=== PATIENT | female | born 1960 | race Two or more races ===

== ENCOUNTER 2018-09-30 05:02 | Inpatient (IN) | payer OTHER ==
[~2018-09-30] VITALS: Ht 157.5 cm; Wt 99.8 kg
[~2018-09-30 05:02] MED LIST: GABA250S2 PO; GLIP2.5T28 PO; MET50T PO; METF-370 PO; OMEP20CA74 OR; POTA10IN PO; TORS20TA20 PO
[2018-09-30] MEDS ORDERED: ASPirin 81 mg TAB PO ONE (05:30)
[2018-09-30] MEDS ORDERED: ONDANSETRON HCL 4 MG/2 ML VIAL IV ONE (06:00)
[2018-09-30] MEDS ORDERED: MORPHINE SULFATE 4 MG/ML SYR/VIAL IV ONE (06:00)
[2018-09-30 06:16] LABS: Basophils # (auto) 0 uL; Basophils % (auto) 0.3 % (0.0-2.0); Eosinophils # (auto) 0.2 uL; Eosinophils % (auto) 1.5 % (0.0-7.0); Hematocrit 43.2 % (36.0-46.0); Hemoglobin 14.8 g/dL (12.2-16.2); Lymphocytes # (auto) 2.7 uL; Lymphocytes % (auto) 25.6 % (10.0-50.0); Mean Corpuscular Hemoglobin 30.1 pg (28.0-32.0); Mean Corpuscular Hgb Conc. 34.3 g/dL (32.0-36.0); Mean Corpuscular Volume 87.8 fL (80.0-100.0); Monocytes # (auto) 0.7 uL; Monocytes % (auto) 6.3 % (0.0-12.0); Neutrophils # (auto) 6.9 uL; Neutrophils % (auto) 66.3 % (37.0-80.0); Platelet Count (auto) 185 10^3/uL (140-450); Red Blood Cells 4.92 10^6/uL (4.0-5.20); Red Cell Distribution Width 13.2 % (11.8-14.3); White Blood Cell 10.4 10^3/uL (4.4-10.8)
[2018-09-30 06:19] LABS: Urine Bacteria FEW /hpf (None Seen); Urine Blood TRACE /uL (Negative); Urine Specific Gravity 1.003 (1.001-1.035); Urine WBC 2 /hpf (0 - 5)
[2018-09-30 06:32] LABS: INR 0.87 (0.9-1.15); Partial Thromboplastin Time 27.8 sec (23.78-33.04); Prothrombin Time 9.4 sec (9.27-12.13)
[2018-09-30 06:39] LABS: Albumin 3.8 g/dL (3.4-5.0); Calcium 8.9 mg/dL (8.5-10.1); Potassium 3.6 mmol/L (3.5-5.1)
[2018-09-30 06:47] LABS: BUN/Creatinine Ratio 18.3; Bilirubin, Total 0.3 mg/dL (0.2-1.0); Magnesium 1.9 mg/dL (1.6-2.6); Total Protein 7.8 g/dL (6.4-8.2)
[2018-09-30] MEDS ORDERED: METOPROLOL TARTRATE 1MG/1ML-5ML VIAL IV ONE (07:00)
[2018-09-30] MEDS ORDERED: NITROGLYCERIN 50MG/250ML 250 ML IV ONE ×2 (07:00→07:03)
[2018-09-30] MEDS ORDERED: HEPARIN SODIUM (PORCINE) 5000 UNITS/ML 1ML VIAL IV ONE (07:00)
[2018-09-30] MEDS ORDERED: LIDOCAINE 2%HCL (LOCAL ANESTH.) INJ 20ML MDV ONE (07:36)
[2018-09-30] MEDS ORDERED: IODIXANOL 320MG/ML 100ML BTL IV ONE (07:36)
[2018-09-30] MEDS ORDERED: SODIUM CHL 0.9% 50 ML ONE (09:10)
[2018-09-30] MEDS ORDERED: fentaNYL CITRATE 100 MCG/2 ML VL ONE (09:10)
[2018-09-30] MEDS ORDERED: ANGIOMAX 250 MG VIAL IV ONE (09:10)
[2018-09-30] MEDS ORDERED: MIDAZOLAM HCL 1MG/1ML-2 ML VIAL ONE ×2 (09:10→09:29)
[2018-09-30] MEDS ORDERED: IOHEXOL 350 MG/ML 100ML IJ ONE (09:11)
[2018-09-30] MEDS ORDERED: ATROPINE SULFATE 1 MG/1 ML VIAL ONE (09:21)
[2018-09-30] MEDS ORDERED: TICAGRELOR 90 MG TAB ONE (09:47)
[2018-09-30] MEDS ORDERED: ASPirin 81 mg TAB ONE (09:47)
[2018-09-30] MEDS ORDERED: MORPHINE SULF INJ 2 MG/ML SYRINGE 1ML IV PRN (10:15)
[2018-09-30] MEDS ORDERED: ONDANSETRON HCL 4 MG/2 ML VIAL IV PRN (10:15)
[2018-09-30] MEDS ORDERED: NITROGLYCERIN 0.4 MG SL TAB SL PRN (10:15)
[2018-09-30] MEDS ORDERED: ALPRAZolam 0.5 MG TAB PO ONE (11:15)
--- NOTE | 2018-09-30 12:58 | NUR ---
Report received from clinical genetics laboratory chief. EDIN MENDIETA brought to bed 291a following [facility]. AAOX4, breathing even unlabored, S,1 S2, Abd soft nontender. Right groin catheterization site assessed for any bleeding, redness or swelling, dressing remain intact, no bleeding nor swelling noted. Pedal pulses on affected leg assessed for positive tissue perfusion. Patient instructed on need to notify staff immediately if any pain, burning or wetness to site, and any lower back pain. Patient educated on new cardiac medications. All questions and concerns addressed, patient verbalized understanding of all education and instruction. Family at bedside. Bed locked in the lowest position, call light within easy reach, will continue to monitor.
[2018-09-30 13:26] VITALS: BP 146/69
--- NOTE | 2018-09-30 14:23 | NUR ---
DR. SCALES AT BEDSIDE.
[2018-09-30] MEDS ORDERED: MORPHINE SULFATE 4 MG/ML SYR/VIAL IV PRN (14:30)
[2018-09-30] MEDS ORDERED: NICOTINE 14 MG/24HR TOPICAL PATCH TD ONE (16:15)
[2018-09-30 16:42] VITALS: BP 140/72
--- NOTE | 2018-09-30 19:16 | NUR ---
CARE ENDORSED TO AMRITA RN.
--- NOTE | 2018-09-30 19:45 | NUR ---
RECEIVED PATIENT FROM DAY SHIFT RN. PATIENT SITTING IN BED AND HAVING DINNER. NO S/S OF DISTRESS NOTED. DENIED PAIN FOR NOW. DRESSING ON RIGHT GROIN C/D/I. POC INSTRUCTED AND ENCOURAGED PATIENT TO CALL FOR SALARY AND WAGE ADMINISTRATOR IF NEEDED. BED IN LOWEST POSITION WITH SIDE RAILS UP X 2. CALL ESQUIVEL WITHIN REACH. ALARM ON. CONTINUE TO MONITOR FOR CHANGES Q1H AND PRN.
[2018-09-30 21:26] VITALS: BP 138/61
[2018-09-30] MEDS: TICAGRELOR 90 MG TAB PO SCH (21:34)
[2018-09-30] MEDS: ALPRAZolam 0.25 MG TAB PO SCH (21:34)
[2018-09-30] MEDS: CARVEDILOL 3.125 MG TAB PO SCH (21:35)
[2018-09-30] MEDS: HYDROcodone-ACET 5/325MG TAB PO PRN (21:36)
[2018-09-30] MEDS ORDERED: ATORVASTATIN 20 MG TAB PO SCH (22:00)
--- NOTE | 2018-10-01 05:51 | NUR ---
PATIENT RESTING IN BED. NO S/S OF DISTRESS NOTED. CONTINUE CARE.
[2018-10-01 06:07] VITALS: BP 134/87
[2018-10-01 06:34] LABS: Potassium 3.9 mmol/L (3.5-5.1)
[2018-10-01 06:36] LABS: Basophils # (auto) 0 uL; Basophils % (auto) 0.2 % (0.0-2.0); Eosinophils # (auto) 0.2 uL; Eosinophils % (auto) 1.7 % (0.0-7.0); Hematocrit 41.2 % (36.0-46.0); Hemoglobin 13.9 g/dL (12.2-16.2); Lymphocytes # (auto) 2.5 uL; Lymphocytes % (auto) 27.8 % (10.0-50.0); Mean Corpuscular Hemoglobin 29.8 pg (28.0-32.0); Mean Corpuscular Hgb Conc. 33.8 g/dL (32.0-36.0); Mean Corpuscular Volume 88.2 fL (80.0-100.0); Monocytes # (auto) 0.6 uL; Monocytes % (auto) 6.6 % (0.0-12.0); Neutrophils # (auto) 5.6 uL; Neutrophils % (auto) 63.7 % (37.0-80.0); Nucleated Red Blood Cells % 0.1 %; Platelet Count (auto) 185 10^3/uL (140-450); Red Blood Cells 4.67 10^6/uL (4.0-5.20); Red Cell Distribution Width 13.4 % (11.8-14.3); White Blood Cell 8.9 10^3/uL (4.4-10.8)
[2018-10-01 06:37] LABS: Calcium 8.2 mg/dL (8.5-10.1)
[2018-10-01 06:42] LABS: BUN/Creatinine Ratio 15.2; Bilirubin, Total 0.5 mg/dL (0.2-1.0); Total Protein 6.7 g/dL (6.4-8.2)
--- NOTE | 2018-10-01 06:51 | NUR ---
RECEIVED CRITICAL LAB RESULT, TROP 3.92. PATIENT S/P LHC, WILL REPORT TO DAY SHIFT RN TO DAY SHIFT MD. CONTINUE TO MONITOR.
--- NOTE | 2018-10-01 07:30 | NUR ---
Opening Shift Note Assumed care of patient, awake and alert. No S/S of distress/SOB or pain. Instructed on POC and to call for assist PRN, will continue to monitor for changes Q1hr and PRN.
[2018-10-01 08:00] VITALS: BP 139/71
[2018-10-01 08:41] VITALS: BP 139/71
[2018-10-01] MEDS: HYDROcodone-ACET 5/325MG TAB PO PRN (08:51)
[2018-10-01] MEDS: TICAGRELOR 90 MG TAB PO SCH (09:58)
[2018-10-01] MEDS: ALPRAZolam 0.25 MG TAB PO SCH (09:59)
[2018-10-01] MEDS: CARVEDILOL 3.125 MG TAB PO SCH (09:59)
[2018-10-01] MEDS ORDERED: NICOTINE 14 MG/24HR TOPICAL PATCH TD SCH (10:00)
[2018-10-01] MEDS ORDERED: LISINOPRIL 5 MG TAB PO SCH (10:00)
[2018-10-01] MEDS ORDERED: ASPirin-EC 81 mg tab PO SCH (10:00)
[2018-10-01 13:09] VITALS: BP 147/79
[2018-10-01 13:54] VITALS: BP 147/79
--- NOTE | 2018-10-01 15:00 | NUR ---
Discharge instructions given as ordered. Encourage to follow up with PMD as instructed. All questions and concerns addressed. Prescriptions given to patient and encouraged to take them to their pharmacy. Patient verbalized understanding. IV removed with catheter intact, pressure dressing applied. Telemetry unit returned to [facility]. Patient ambulated to vehicle with all personal belongings, accompanied by family member. No distress noted at time of departure.
== END 2018-10-01 15:18 | disposition home or self-care (01) | DRG 246 ==
LOC: ER 05:05 → EDBD 07:37 → OVERFLOW 07:37 → TELE-WESTW 12:57
PROVIDERS: ADMIT Internal Medicine; ATTEND Internal Medicine
PROC: 4A023N7 Measurement of Cardiac Sampling and Pressure, Left Heart, Percutaneous Approach (ICD-10-PCS; principal; 2018-09-30)
PROC: 027034Z Dilation of Coronary Artery, One Artery with Drug-eluting Intraluminal Device, Percutaneous Approach (ICD-10-PCS; 2018-09-30)
PROC: B2111ZZ Fluoroscopy of Multiple Coronary Arteries using Low Osmolar Contrast (ICD-10-PCS; 2018-09-30)
PROC: B2151ZZ Fluoroscopy of Left Heart using Low Osmolar Contrast (ICD-10-PCS; 2018-09-30)
DX: I25.10 Atherosclerotic heart disease of native coronary artery without angina pectoris (principal); I21.9 Acute myocardial infarction, unspecified; Z68.41 Body mass index [BMI] 40.0-44.9, adult; I50.30 Unspecified diastolic (congestive) heart failure; I24.9 Acute ischemic heart disease, unspecified; I11.0 Hypertensive heart disease with heart failure; F41.9 Anxiety disorder, unspecified; F17.210 Nicotine dependence, cigarettes, uncomplicated; E78.5 Hyperlipidemia, unspecified; E66.9 Obesity, unspecified; E11.65 Type 2 diabetes mellitus with hyperglycemia; E03.9 Hypothyroidism, unspecified; I25.2 Old myocardial infarction; Z79.82 Long term (current) use of aspirin; Z79.899 Other long term (current) drug therapy; Z82.49 Family history of ischemic heart disease and other diseases of the circulatory system; Z98.61 Coronary angioplasty status
CPT/HCPCS: 36415; 71045; 80053; 81001; 83036; 83735; 83880; 84443; 84484; 85025; 85610; 85730; 92928; 93005; 93306; 93458; 99152; A6257; C1874; C1887; G0378; J0461; J2250; J2405; Q9967

== ENCOUNTER 2018-10-29 19:40 | Emergency (ER) | payer OTHER ==
[~2018-10-29] VITALS: Ht 157.5 cm; Wt 94.3 kg
[2018-10-29 20:55] LABS: Basophils # (auto) 0.1 uL; Basophils % (auto) 0.5 % (0.0-2.0); Eosinophils # (auto) 0.3 uL; Eosinophils % (auto) 2.6 % (0.0-7.0); Hematocrit 43.5 % (36.0-46.0); Hemoglobin 14.7 g/dL (12.2-16.2); Lymphocytes # (auto) 3.3 uL; Lymphocytes % (auto) 26.1 % (10.0-50.0); Mean Corpuscular Hgb Conc. 33.8 g/dL (32.0-36.0); Mean Corpuscular Volume 88.6 fL (80.0-100.0); Monocytes # (auto) 0.8 uL; Monocytes % (auto) 5.9 % (0.0-12.0); Neutrophils # (auto) 8.2 uL; Neutrophils % (auto) 64.9 % (37.0-80.0); Platelet Count (auto) 207 10^3/uL (140-450); Red Blood Cells 4.91 10^6/uL (4.0-5.20); Red Cell Distribution Width 13.1 % (11.8-14.3); White Blood Cell 12.7 10^3/uL (4.4-10.8)
[2018-10-29 21:09] LABS: INR 0.86 (0.9-1.15); Prothrombin Time 9.3 sec (9.27-12.13)
[2018-10-29 21:13] LABS: Albumin 3.8 g/dL (3.4-5.0); BUN/Creatinine Ratio 22.1; Calcium 9.2 mg/dL (8.5-10.1); Potassium 4.1 mmol/L (3.5-5.1)
[2018-10-29 21:15] LABS: Bilirubin, Total 0.1 mg/dL (0.2-1.0); Total Protein 8.2 g/dL (6.4-8.2)
[2018-10-30 04:08] VITALS: BP 167/81
== END 2018-10-30 04:39 | disposition left against medical advice (07) ==
LOC: ER 19:40
DX: M79.89 Other specified soft tissue disorders (principal); R20.0 Anesthesia of skin; Z53.21 Procedure and treatment not carried out due to patient leaving prior to being seen by health care provider
CPT/HCPCS: 36415; 80053; 84484; 85025; 85610; 85730; 93005; 93971

== ENCOUNTER 2023-05-24 05:10 | Emergency (ER) | payer BC, OTHER ==
[~2023-05-24] VITALS: Ht 157.5 cm; Wt 98.2 kg
[~2023-05-24 05:10] MED LIST changes: -GABA250S2 PO; +GABA250S7 PO; -GLIP2.5T28 PO; +GLIP2.5T9 PO
[2023-05-24 05:45] VITALS: BP 179/95; RESP 16; TEMP 97.7; O2SAT 97
[2023-05-24] MEDS ORDERED: ONDANSETRON HCL 4 MG/2 ML VIAL IV ONE (05:45)
[2023-05-24 05:51] LABS: Basophils # (auto) 0 10 ^3/uL (0-0.2); Basophils % (auto) 0.1 % (0.0-2.0); Eosinophils # (auto) 0.1 10 ^3/uL (0-0.8); Eosinophils % (auto) 0.8 % (0.0-7.0); Hematocrit 44.5 % (36.0-46.0); Hemoglobin 14.7 g/dL (12.2-16.2); Lymphocytes # (auto) 0.9 10 ^3/uL (0.4-5.4); Lymphocytes % (auto) 5.7 % (10.0-50.0); Mean Corpuscular Hemoglobin 29.4 pg (28.0-32.0); Mean Corpuscular Hgb Conc. 33.2 g/dL (32.0-36.0); Mean Corpuscular Volume 88.5 fL (80.0-100.0); Monocytes # (auto) 0.5 10 ^3/uL (0-1.3); Monocytes % (auto) 3.3 % (0.0-12.0); Neutrophils # (auto) 14.2 10 ^3/uL (1.6-8.6); Neutrophils % (auto) 90.1 % (37.0-80.0); Red Blood Cells 5.02 10^6/uL (4.0-5.20); White Blood Cell 15.8 10^3/uL (4.4-10.8)
[2023-05-24 06:13] LABS: Alanine Aminotransferase 21 U/L (7-40); Albumin 4.7 g/dL (3.2-4.8); Alkaline Phosphatase 108 U/L (46-116); Anion Gap 13 (5-15); Aspartate Aminotransferase 21 U/L (13-40); BUN/Creatinine Ratio 7.9 (10.0-20.0); Blood Urea Nitrogen 6 mg/dL (9-23); Calcium 9.8 mg/dL (8.5-10.1); Carbon Dioxide 20 mmol/L (20-30); Chloride 104 mmol/L (98-107); Glucose 222 mg/dL (74-106); Potassium 4.2 mmol/L (3.5-5.1); Sodium 137 mmol/L (136-145); Total Protein 7.7 g/dL (5.7-8.2)
[2023-05-24 06:17] LABS: Bilirubin, Total 0.5 mg/dL (0.2-1.0)
[2023-05-24 06:34] LABS: Urine Bacteria NONE SEEN /hpf (None Seen); Urine Blood 1+ /uL (Negative); Urine Clarity Clear (Clear); Urine Color Yellow (Yellow); Urine Protein, UAD 1+ (Negative); Urine Specific Gravity 1.015 (1.001-1.035); Urine Urobilinogen Normal (Negative); Urine WBC 1 /hpf (0 - 5); Urine pH 6.5 (5.0-8.0)
[2023-05-24 06:37] VITALS: PULSE 86
[2023-05-24 06:50] LABS: INR 0.93 (0.9-1.15); Partial Thromboplastin Time 22.5 SEC (24.5-34.5); Prothrombin Time 9.8 sec (9.3-11.8)
[2023-05-24 06:53] LABS: Lipase 41 U/L (12-53); Magnesium 1.5 mg/dL (1.6-2.6)
[2023-05-24] MEDS ORDERED: ENOXAPARIN SOD 100 MG/1 ML SYRINGE SC ONE (07:15)
[2023-05-24] MEDS ORDERED: SODIUM CHLORIDE 0.9% 1,000 ML IV ONE ×2 (07:15)
[2023-05-24] MEDS ORDERED: MORPHINE SULFATE INJ 2 MG/ml SYRG IV ONE (07:15)
== END 2023-05-24 08:29 | disposition left against medical advice (07) ==
LOC: ER 05:10
DX: K52.9 Noninfective gastroenteritis and colitis, unspecified (principal); R79.89 Other specified abnormal findings of blood chemistry; E11.9 Type 2 diabetes mellitus without complications; I10 Essential (primary) hypertension; F17.210 Nicotine dependence, cigarettes, uncomplicated; F12.10 Cannabis abuse, uncomplicated; Z98.51 Tubal ligation status
CPT/HCPCS: 36415; 71045; 74176; 80053; 81001; 83690; 83735; 84484; 85025; 85610; 85730; 93005; 96374; 99285; J2405